=== PATIENT | female | born 1960 | race Caucasian/White ===

== ENCOUNTER 2017-12-29 11:07 | Emergency (ER) | payer MEDICAID ==
[~2017-12-29] VITALS: Ht 160 cm; Wt 49.9 kg
[~2017-12-29 11:07] MED LIST: HYDGUAL120 PO; Norco 5-325 Ta1 EACH PO; SULTRIDS PO
[2017-12-29] MEDS ORDERED: CYCL10 PO (12:10)
[2017-12-29] MEDS ORDERED: LIDO700A20 TOP (12:10)
== END 2017-12-29 12:29 | disposition home or self-care (01) ==
LOC: ER 11:07
DX: M54.5 Low back pain (principal); F17.210 Nicotine dependence, cigarettes, uncomplicated; Z91.030 Bee allergy status; Z88.5 Allergy status to narcotic agent; Z87.442 Personal history of urinary calculi
CPT/HCPCS: 96372; 99282; J1885